=== PATIENT | male | born 1955 | race Two or more races ===

== ENCOUNTER 2024-07-15 06:08 | Emergency (ER) | payer MEDICARE, BC, SELFPAY ==
[2024-07-15] VITALS (10 sets, daily range): BP systolic 128–167; BP diastolic 71–96; PULSE 99–105; BMI 27.8
--- NOTE | 2024-07-15 07:15 | ED.GENMED ---
History of Present Illness
General
Chief Complaint: Dizziness
Source: patient
Exam Limitations: none
Time Seen by Provider: 07/15/24 06:54
Nursing documentation reviewed up to this point in time: agreed with
History of Present Illness
History of Present Illness:
Patient presents to ED secondary to sudden onset of dizziness with nausea sensation, when he lay down to sleep last night after watching football game. Denies associated headache, blurred vision, loss of sensation, weakness, difficulty with speech
or swallowing, chest palpitations, or shortness of breath. Patient denies loss of consciousness. Denies room spinning sensation. Patient has felt uncomfortable when ambulating with concern for fall due to his lightheadedness. Denies previous
history of similar symptoms. Patient states that he was at his baseline health all day yesterday. Denies recent change in diet or medications. Of note, patient does have history of hypertension for which he takes amlodipine at nighttime. As he
was unable to sleep last night secondary to continued lightheadedness, his symptoms were brought to his son's attention, who lives with the patient. This morning around 5:30 AM, his blood pressure was checked and it was noted to be elevated with
systolic pressure greater than 170. At that time, patient was provided with 1 additional tablet of amlodipine. Since then, patient states that his lightheadedness has improved mildly.
Past History
Past History
ED Past Medical History: HTN
ED Past Surgical History: None
Social History
Tobacco: Non-smoker
Alcohol: None
Drug: None
Personal:
Living: with family
Employment: Employed
Review of Systems
Review of Systems
Allergies reviewed?: Yes
All Other Systems: ROS reviewed and negative except as documented in HPI and ROS
Constitutional: Reports no symptoms
EENT: Reports no symptoms
Respiratory: Reports no symptoms
Cardiac: Reports no symptoms
ABD/GI: Reports nausea; Denies vomiting
: Reports no symptoms
Musculoskeletal: Reports no symptoms
Skin: Reports no symptoms
Neurological: Reports dizzy; Denies headache, weakness or numbness
Phy Exam
Physical Exam
Physical Exam:
Physical Exam
General: mild distress, not acutely ill. afebrile
Head: nc/at. eomi. horizontal nystagmus noted.
Neck: supple. no meningeal signs
Heart: s1/s2 regular rate and rhythm, no murmur. equal radial pulses.
Lungs: no acute respiratory distress. clear bilaterally
Abdomen: normal bowel sounds. not tender.
Neuro: alert and oriented. no focal neurological deficits
Skin: no rash
Psychiatric: well kept. interactive and cooperative
Extremities: no edema. no calf tenderness.
Course
Orders/Labs/Results
Orders:
Orders
07/15/24 07:14
Orthostatic VS- Treatment ONCE
07/15/24 07:15
Electrocardiogram (*1) Urgent
Reason for Study: Vertigo / Dizzy
CT Head W/o Iv Contrast Urgent
Comment:
Reason For Exam: dizziness
EKG- Treatment ONCE
07/15/24 07:19
Physical Therapy Consult [Pt Eval And Treat] Urgent
Treatment: vertigo
Activity Level: As Tolerated
07/15/24 07:24
Complete Blood Count/No Diff Urgent
Comprehensive Metabolic Panel Urgent
Magnesium Urgent
TSH Urgent
Comment: ADD ON
Troponin I Urgent
07/15/24 08:08
Urinalysis Reflex To Culture Urgent
Date Specimen was Collected: 07/15/24
Time Specimen was Collected: 07:56
07/15/24 09:11
Add On- LAB Urgent
Tests Added?: TSH
Abnormal Lab Results
07/15/24
07:24
RBC 4.61 L 10^6/uL
(4.70-6.10)
Hct 37.9 L %
(39.0-52.0)
MCHC 37.5 H g/dL
(33.0-37.0)
Glucose 160 H mg/dl
(70-99)
TSH 0.20 L uIU/ml
(0.47-4.68)
07/15/24 07:24
07/15/24 07:24
Vital Signs
Initial and Last Documented VS:
Initial Vital Signs
Temp Pulse Resp BP Pulse Ox
98.0 F 88 16 167/90 99
07/15/24 06:12 07/15/24 06:12 07/15/24 06:12 07/15/24 06:12 07/15/24 06:12
Last Documented Vital Signs
Temp Pulse Resp BP Pulse Ox
98.0 F 82 16 132/91 95
07/15/24 06:12 07/15/24 09:00 07/15/24 09:00 07/15/24 09:00 07/15/24 09:00
MDM/Problems Addressed
MDM/Problems Addressed:
Patient with spontaneous resolution of symptoms during observation ED. Patient evaluated in ED by physical therapy, without any identifiable cause or reoccurrence of his dizziness.
CT head report reviewed and discussed with on-call neurosurgery, Dr. Meade, who feels that patient can be discharged home for an outpatient follow-up. As such, patient will be provided with copy of CT scan, blood work results, with recommendation
to follow-up with his primary care physician for reevaluation, including potential referral to neurosurgery for an outpatient evaluation. In addition, patient will be given prescription for meclizine, to be used as needed, with recurrent symptoms,
as well as information for an outpatient physical therapy evaluation.
*Critical Care Note
Total Time (30-74mins, 75-104mins- exclusive of procedures): Not Applicable
ED Attending Note
-
Portions of this chart may have been created with voice recognition software.� Occasional wrong word or��sound alike� substitutions may have occurred due to the inherent limitations of voice recognition software.
Discharge Plan
Departure
Patient Disposition: Home (Routine Discharge)
Date of Disposition: 07/15/24
Time of Disposition: 08:55
Patient with high blood pressure during this ER visit?: Yes
Condition: Good
Discharge Problem:
Vertigo
Instructions: Vertigo (a type of dizziness), Chiari Malformation (DC)
Prescriptions:
New
meclizine 25 mg tablet
25 mg PO BID PRN (Reason: dizziness) Qty: 20 0RF
No Action
amlodipine 5 MG tablet
5 mg PO DAILY
Referrals:
UNKNOWN - PT DOES,NOT KNOW [Family Provider] -
Activity Restrictions/Additional Instructions:
As discussed, please follow-up with your primary care physician for reevaluation, including potential referral to neurosurgery for an outpatient consultation regarding your CT scan. In the meantime, please consider following up with already
discussed physical therapy department for reevaluation. Your prescription has been sent electronically to [facility] pharmacy in [place].
Interventions
Interventions:
*Risk Screen - Suicide Last Done: 07/15/24 06:12
*General Assessment Last Done: 07/15/24 06:43
*Neglect/Abuse Screening Last Done: 07/15/24 06:12
ED- Fall Risk Assessment Last Done: 07/15/24 06:15
*ED COVID-19 Vaccine History Last Done: 07/15/24 06:12
*Nursing Disposition Last Done: 07/15/24 09:20
ED- Neurological Assessment Last Done: 07/15/24 07:57
ED- Cardiac Assessment Last Done: 07/15/24 07:57
ED Swallowing Screen Last Done: 07/15/24 07:57
Discharge Date and Time
Discharge Date/Time: 07/15/24 09:51
Print Language: NEPALESE
[2024-07-15 07:52] LABS: ALT (SGPT) 27 U/L (0-50); AST (SGOT) 29 U/L (17-59); Albumin 4.5 g/dl (3.5-5.0); Alkaline Phosphatase 54 U/L (38-126); Blood Urea Nitrogen 11 mg/dl (9-20); Calcium 9.5 mg/dl (8.4-10.2); Carbon Dioxide 25 mmol/L (22-30); Chloride 102 mmol/L (98-107); Estimated Creatinine Clearance 80 ml/min; Glucose 160 mg/dl (70-99); Sodium 140 mmol/L (135-145); Total Bilirubin 0.4 mg/dl (0.2-1.3); Total Protein 7.3 g/dl (6.3-8.2); eGFR > 60.00
[2024-07-15 08:03] LABS: Troponin I < 0.012 ng/ml
[2024-07-15 08:05] LABS: Hematocrit 37.9 % (39.0-52.0); Hemoglobin 14.2 g/dL (13.0-18.0); Mean Corp Hgb Conc. 37.5 g/dL (33.0-37.0); Mean Corpuscular Hgb 30.8 pg (27.0-31.0); Mean Corpuscular Volume 82.2 fL (80.0-94.0); Mean Platelet Volume 10.1 fL (7.4-10.4); Platelet Count 176 10^3/uL (130-400); Red Blood Cell Count 4.61 10^6/uL (4.70-6.10); Red Cell Dist. Width 12.2 % (11.5-14.5); White Blood Cell Count 4.8 10^3/uL (4.8-10.8)
[2024-07-15 08:18] LABS: Urine Albumin Negative (Neg - Trace); Urine Bilirubin Negative (Negative); Urine Character Clear (Clear); Urine Color Yellow; Urine Glucose Negative (Negative); Urine Ketone Negative (Negative); Urine Leukocyte Negative (Negative); Urine Nitrite Negative (Negative); Urine Occult Blood Negative (Negative); Urine Urobilinogen Negative (Neg - 1+)
== END 2024-07-15 09:51 | disposition home or self-care (01) ==
LOC: EMR 06:08
PROVIDERS: EMERGENCY PHYSICIAN Emergency Medicine
DX: R42 Dizziness and giddiness (principal); I10 Essential (primary) hypertension
CPT/HCPCS: 99285; 70450; 80053; 81003; 83735; 84443; 84484; 85027; 93005